=== PATIENT | female | born 1980 | race Caucasian/White ===

== ENCOUNTER → 2016-12-03 | Day surgery (SDC) | payer OTHER ==
[2016-12-03 09:59] LABS: HCT 38.8 % (37.0-47.0); HGB 13.3 g/dl (12.5-16.0); MCH 30.1 pg (25.0-31.0); MCHC 34.3 g/dL (32.0-36.0); MCV 87.8 fL (78.0-100.0); MPV 8.9 fL (6.0-9.5); RBC 4.42 M/uL (4.20-5.40); RDW 13.4 % (11.5-14.0); WBC 4.2 K/uL (4.0-10.5)
[2016-12-03 10:15] LABS: ALBUMIN 4.6 g/dL (3.5-5.0); BILIRUBIN - TOTAL 0.6 mg/dL (0.1-1.0); CREATININE 0.7 mg/dL (0.5-1.0); GLOBULIN (CALCULATION) 2.9 g/dL (2.2-4.2); POTASSIUM 3.8 mmol/L (3.5-5.1); TOTAL PROTEIN 7.5 g/dL (6.4-8.3)
== END | disposition home or self-care (01) ==
LOC: FAS 09:56
PROVIDERS: Surgery
DX: K29.50 Unspecified chronic gastritis without bleeding (principal); K21.0 Gastro-esophageal reflux disease with esophagitis; Z87.891 Personal history of nicotine dependence; Z79.899 Other long term (current) drug therapy; Z90.710 Acquired absence of both cervix and uterus; Z98.890 Other specified postprocedural states; Z88.1 Allergy status to other antibiotic agents
CPT/HCPCS: 36415; 80053; 88305; J2405; J2704